=== PATIENT | male | born 1985 | race Caucasian/White ===

== ENCOUNTER 2023-06-11 05:55 | Emergency (ER) | payer MEDICAID ==
[~2023-06-11] VITALS: Ht 165.1 cm; Wt 79.4 kg
[2023-06-11 06:06] VITALS: BP 136/94; PULSE 104; RESP 18; TEMP 97.7; O2SAT 98
[2023-06-11] MEDS ORDERED: INSULIN LISPRO 100 UNITS/ML VIAL SUBQ ONE (06:30)
[2023-06-11] MEDS ORDERED: LISI-486 PO (09:30)
[2023-06-11] MEDS ORDERED: HUM SUBQ (09:30)
[2023-06-11 09:41] VITALS: BP 136/94; PULSE 104; RESP 18; TEMP 97.7; O2SAT 98
== END 2023-06-11 09:41 ==
LOC: MED 05:55
DX: E11.9 Type 2 diabetes mellitus without complications (principal); I10 Essential (primary) hypertension; Z91.148 Patient's other noncompliance with medication regimen for other reason; Z86.69 Personal history of other diseases of the nervous system and sense organs
CPT/HCPCS: 82948; 96372; 99283; J1815